=== PATIENT | male | born 1980 | race Caucasian/White ===

== ENCOUNTER 2018-09-22 14:06 | Emergency (ER) | payer SELFPAY ==
--- NOTE | 2018-09-22 14:23 | Emergency Department Record ---
History of Present Illness - General Chief complaint: Dental Stated complaint: DENTAL SWELLING/PAIN Time Seen by Provider: 09/22/18 14:18 Source: Patient Mode of Arrival: Ambulatory Limitations: No limitations - History of Present Illness Initial comments: The patient is here due to dental pain. He had 2 teeth pulled out 2 days ago by his dentist and now he is concerned the areas are getting infected. He states his dentist's office is closed today. He denies any trouble or pain with swallowing. MD complaint: Tooth pain Onset/Timin -: Days(s) Severity: Moderate Severity scale (1-10): 7 Improves with: None Worsens with: None - Related Data Previous Rx's Medication Instructions Recorded Clindamycin HCl [Cleocin HCl] 300 mg PO QID #28 capsule 09/22/18 Allergies Allergy/AdvReac Type Severity Reaction Status Date / Time amoxicillin Allergy Severe swelling/throat Unverified 07/12/18 09:02 swelling Penicillins Allergy Severe swelling/throat Unverified 07/12/18 09:02 swelling Travel Screening - Travel/Exposure Within Last 30 Days Have you traveled within the last 30 days?: No - Travel/Exposure Within Last Year Have you traveled outside the [place] in the last year?: No - Additonal Travel Details Have you been exposed to anyone with a communicable illness?: No - Travel Symptoms Symptom Screening: None Review of Systems Constitutional: Denies: Chills, Fever Past Medical History - SOCIAL HISTORY Smoking Status: Current every day smoker Alcohol Use: None Drug Use: None - RESPIRATORY Hx Respiratory Disorders: No - CARDIOVASCULAR Hx Cardio Disorders: No - NEURO Hx Neuro Disorders: No - GI Hx GI Disorders: No - Hx Genitourinary Disorders: No - ENDOCRINE Hx Endocrine Disorders: No - MUSCULOSKELETAL Hx Musculoskeletal Disorders: No - PSYCH Hx Psych Problems: No - HEMATOLOGY/ONCOLOGY Hx Hematology/Oncology Disorders: No Family Medical History Any Significant Family History?: No Physical Exam - General General Appearance: Alert, Oriented x3, Cooperative, No acute distress - Head Head exam: Atraumatic, Normocephalic, Normal inspection - Eye Eye exam: Normal appearance, PERRL, EOMI - ENT ENT exam: Normal exam (There is no facial swelling.) Teeth exam: Other (There are 2 extraction sites on the R and L upper maxilla area where the teeth were removed. There is no swelling or any obvious infection.). negative: Normal inspection Throat exam: Normal inspection. negative: Tonsillar erythema, Tonsillomegaly, Tonsillar exudate, R peritonsillar mass, L peritonsillar mass - Neck Neck exam: Normal inspection, Full ROM. negative: Lymphadenopathy, Meningismus , Tenderness Course Vital Signs 09/22/18 14:10 Temperature 97.8 F Pulse Rate 62 Respiratory 18 Rate Blood Pressure 135/88 Pulse Ox 97 - Reevaluation(s) Reevaluation #1: I explained to the patient we can place him on Clindamycin and he is to see his Dentist JOSE DANIEL. 09/22/18 14:25 Disposition Disposition: Discharge Clinical Impression: Pain, dental Disposition: Home, Self-Care Condition: (2) Stable Instructions: Toothache (ED) Additional Instructions: Please take the Clindamycin as directed and please see your dentist JOSE DANIEL. Prescriptions: Clindamycin HCl [Cleocin HCl] 300 mg PO QID #28 capsule Forms: Patient Portal Access Time of Disposition: 14:23 Quality - Quality Measures Quality Measures: N/A - Blood Pressure Screening View Details: Yes Does Patient Have Any of the Following: No Blood Pressure Classification: Pre-Hypertensive BP Reading Systolic Measurement: 135 Diastolic Measurement: 88 Screening for High Blood Pressure: < Pre-Hypertensive BP, F/U Documented > [ G8950] Pre-Hypertensive Follow-up Interventions: Referral to alternative/primary care provider.
== END 2018-09-22 14:35 | disposition home or self-care (01) ==
LOC: ER 14:06
DX: K08.89 Other specified disorders of teeth and supporting structures (principal); K08.409 Partial loss of teeth, unspecified cause, unspecified class; F17.210 Nicotine dependence, cigarettes, uncomplicated
CPT/HCPCS: 99282

== ENCOUNTER 2019-02-21 16:51 | Emergency (ER) | payer SELFPAY ==
--- NOTE | 2019-02-21 17:31 | Emergency Department Record ---
History of Present Illness - General Chief Complaint: Back Pain/Injury Stated Complaint: BACK SPASMS Time Seen by Provider: 02/21/19 17:26 Source: Patient Mode of Arrival: Ambulatory Limitations: No limitations - History of Present Illness Initial Comments: Pt presents requesting "a work note so I don't have to use a vacation day from my job". Pt states he has back pain that he takes Tylenol for. No radiation to legs, no B/B disfunction. "I just need a note". -: Unknown Similar Symptoms Previously: Yes Place: Home, Work Radiation: None Consistency: Intermittent Improves With: None Worsens With: None Context: Unknown Associated Symptoms: Denies other symptoms - Related Data Home Medications Medication Instructions Recorded Confirmed Last Taken No Home Med [NO HOME MEDS] 02/21/19 02/21/19 Unknown Allergies Allergy/AdvReac Type Severity Reaction Status Date / Time amoxicillin Allergy Severe swelling/throat Unverified 07/12/18 09:02 swelling Penicillins Allergy Severe swelling/throat Unverified 07/12/18 09:02 swelling Travel Screening - Travel/Exposure Within Last 30 Days Have you traveled within the last 30 days?: No Review of Systems Constitutional: Denies: Chills, Fever, Weakness ENT: Denies: Congestion Respiratory: Denies: Cough Endocrine: Denies: Fatigue Gastrointestinal: Denies: Abdominal pain Musculoskeletal: Reports: As per HPI, Back pain Neurological: Denies: Abnormal gait, Weakness Past Medical History - SOCIAL HISTORY Smoking Status: Current every day smoker - RESPIRATORY Hx Respiratory Disorders: No - CARDIOVASCULAR Hx Cardio Disorders: No - NEURO Hx Neuro Disorders: No - GI Hx GI Disorders: No - Hx Genitourinary Disorders: No - ENDOCRINE Hx Endocrine Disorders: No - MUSCULOSKELETAL Hx Musculoskeletal Disorders: No - PSYCH Hx Psych Problems: No - HEMATOLOGY/ONCOLOGY Hx Hematology/Oncology Disorders: No Family Medical History Any Significant Family History?: No Physical Exam - General General Appearance: Alert, Oriented x3, Cooperative, No acute distress - Head Head exam: Atraumatic - Eye Eye exam: Normal appearance - Neck Neck exam: Normal inspection, Full ROM - Respiratory Respiratory exam: Normal lung sounds bilaterally. negative: Accessory muscle use - Cardiovascular Cardiovascular Exam: Regular rate, Normal rhythm - GI/Abdominal GI/Abdominal exam: Soft. negative: Tenderness - Extremities Extremities exam: Normal inspection - Back Back exam: Reports: Normal inspection. Denies: Muscle spasm, Paraspinal tenderness, Vertebral tenderness - Neurological Neurological exam: Alert, Normal gait, Oriented X3 - Psychiatric Psychiatric exam: Normal affect, Normal mood - Skin Skin exam: Normal color Course Vital Signs 02/21/19 17:03 Temperature 98.6 F Pulse Rate 69 Respiratory 18 Rate Blood Pressure 130/80 Pulse Ox 94 L - Reevaluation(s) Reevaluation #1: 02/21/19 17:28 Pt without medical issues wanting work note. I informed him that his visit is inappropriate and that I would NOT be providing a note for him. Pt states "I understand". Disposition Disposition: Discharge Clinical Impression: Back pain Disposition: Home, Self-Care Condition: (1) Good Instructions: Low Back Strain (ED) Additional Instructions: family doctor as needed. Time of Disposition: 17:30 Quality - Quality Measures Quality Measures: N/A - Blood Pressure Screening Does Patient Have Any of the Following: No Blood Pressure Classification: Pre-Hypertensive BP Reading Systolic Measurement: 130 Diastolic Measurement: 80 Screening for High Blood Pressure: < Pre-Hypertensive BP, F/U Documented > [G8950] Pre-Hypertensive Follow-up Interventions: Follow-up with rescreen every year.
== END 2019-02-21 17:27 | disposition home or self-care (01) ==
LOC: ER 16:51
DX: M54.9 Dorsalgia, unspecified (principal); F17.210 Nicotine dependence, cigarettes, uncomplicated
CPT/HCPCS: 99282